=== PATIENT | female | born 1980 | race Caucasian/White ===

== ENCOUNTER → 2021-03-26 | Emergency (ER) | payer SELFPAY | END | disposition left against medical advice (07) | LOC: ER 09:38 | DX: R10.9 Unspecified abdominal pain (principal); Z53.21 Procedure and treatment not carried out due to patient leaving prior to being seen by health care provider ==

== ENCOUNTER → 2021-03-26 | Emergency (ER) | payer SELFPAY | END | disposition left against medical advice (07) | LOC: EDBD → ER 09:18 | DX: R10.9 Unspecified abdominal pain (principal); Z53.21 Procedure and treatment not carried out due to patient leaving prior to being seen by health care provider ==

== ENCOUNTER → 2021-03-29 | Emergency (ER) | payer MEDICAID | END | disposition left against medical advice (07) | LOC: ER 11:09 | DX: R07.89 Other chest pain (principal) ==